=== PATIENT | male | born 1945 | race African-American/Black ===

== ENCOUNTER → 2019-08-22 | Outpatient (CLI) | payer MEDICARE ==
[~2019-08-22] MED LIST: CARV25TA47 PO; CHOL20004 PO; COLC0.6C3 PO; FAMO40TA70 MT; HYDR25TA PO; LOSA50TA41 PO
== END | disposition home or self-care (01) ==
LOC: US 07:13
DX: N28.1 Cyst of kidney, acquired (principal); R16.1 Splenomegaly, not elsewhere classified; M85.88 Other specified disorders of bone density and structure, other site; D69.3 Immune thrombocytopenic purpura
CPT/HCPCS: 76700; 77080

== ENCOUNTER 2020-09-21 20:49 | Inpatient (IN) | payer MEDICARE, OTHER ==
[~2020-09-21] VITALS: Ht 182.9 cm; Wt 83.9 kg
[2020-09-21] MEDS ORDERED: SODIUM CHLORIDE 0.9% 1,000 ML IV ONE (21:45)
[2020-09-21] MEDS ORDERED: ACETAMINOPHEN 325MG TABLET PO ONE (21:45)
[2020-09-21 22:39] LABS: HEMATOCRIT. 23.2 % (42.0-52.0); HEMOGLOBIN. 7.6 g/dL (14.0-18.0); MEAN CORPUSCULAR HEMOGLOBIN 34.5 pg (28.0-32.0); MEAN CORPUSCULAR VOLUME 105.2 fL (80.0-94.0); RED BLOOD CELL COUNT 2.21 mill/uL (4.7-6.1); RED CELL DISTRIBUTION WIDTH 21.3 % (11.6-14.6)
[2020-09-21 22:47] LABS: CHLORIDE 103 mEq/L (98-107)
[2020-09-21 23:02] LABS: MEAN PLATELET VOLUME 11.4 fl (7.4-10.4); PLATELET 63 x1000/uL (130-400)
[2020-09-21 23:04] LABS: NUCLEATED RED BLOOD CELLS 1 /100 WBC; PLATELET ESTIMATE DECREASED
[2020-09-22] MEDS ORDERED: PIPERACILLIN/TAZOBACTAM 3.375GM/50ML PREMIX IV ONE (00:15)
[2020-09-22] MEDS ORDERED: PIPERACILLIN/TAZ 3.375G PREMIX 50 ML IV NR (00:30)
[2020-09-22] MEDS ORDERED: IOHEXOL-300 100 ML BOTTLE ONE (00:51)
[2020-09-22] MEDS ORDERED: SODIUM CHLORIDE 0.9% 1,000 ML IV ONE (01:00)
[2020-09-22] MEDS ORDERED: NOREPINEPHRINE 8 MG in DEXTROSE 5% WATER 250 ML IV PRN (02:15)
[2020-09-22] MEDS ORDERED: VANCOMYCIN 1 G PREMIX 200 ML IV NR (02:30)
[2020-09-22 02:35] LABS: CLARITY URINE CLEAR (CLEAR); COLOR URINE YELLOW (YELLOW); KETONES URINE 1+ (NEGATIVE); LEUKOCYTE ESTERASE URINE NEGATIVE (NEGATIVE); NITRITE URINE NEGATIVE (NEGATIVE); OCCULT BLOOD URINE NEGATIVE (NEGATIVE); PH URINE 5.5 (4.5-8.0); PROTEIN URINE 1+ (NEGATIVE); SPECIFIC GRAVITY URINE 1.043 (1.005-1.030); UROBILINOGEN URINE 0.2 E.U./dL (0.2-1.0)
[2020-09-22] MEDS ORDERED: ACETAMINOPHEN 325MG TABLET PO PRN ×2 (03:30)
[2020-09-22] MEDS ORDERED: ONDANSETRON HCL 4MG/2ML INJ IV PRN (03:30)
[2020-09-22] MEDS ORDERED: VANCOMYCIN 1 G PREMIX 200 ML IV SCH (03:30)
[2020-09-22] MEDS ORDERED: DIPHENHYDRAMINE 50MG/ML VIAL IV PRN (03:30)
[2020-09-22] MEDS ORDERED: ZOLPIDEM TARTRATE 5MG TABLET PO PRN (03:30)
[2020-09-22] MEDS ORDERED: ENOXAPARIN 40MG/0.4ML SYR SUBCUT SCH (03:30)
[2020-09-22] MEDS: SODIUM CHLORIDE 0.9% 1,000 ML IV SCH ×3 (04:33→21:49)
[2020-09-22 04:43] LABS: VITAMIN B12 SERUM > 2000.0 pg/mL (211-911)
[2020-09-22] MEDS ORDERED: MEROPENEM 500 MG in SODIUM CHLORIDE 0.9% 50 ML IV SCH (06:00)
[2020-09-22] MEDS: FAMOTIDINE 20MG/2ML VIAL IV SCH ×2 (08:44→21:56)
[2020-09-22] MEDS: VANCOMYCIN 1500MG in DEXTROSE 5% WATER 250ML IV SCH (11:37)
[2020-09-22 14:00] VITALS: BP 135/74
[2020-09-22 16:00] VITALS: BP 121/63
[2020-09-22 18:00] VITALS: BP 111/58
[2020-09-22] MEDS: MEROPENEM 500MG in NORMAL SALINE 50ML IV SCH (19:07)
[2020-09-22 20:00] VITALS: BP 105/55
[2020-09-22 21:40] VITALS: BP 105/56
[2020-09-22] MEDS: NEOMYCIN/BACITRACIN/POLYMYXIN OINT 14GM TOP SCH (21:57)
[2020-09-23] VITALS (16 sets, daily range): BP systolic 93–128; BP diastolic 46–75
[2020-09-23] MEDS: MEROPENEM 500MG in NORMAL SALINE 50ML IV SCH ×2 (01:00→11:37)
[2020-09-23 06:36] LABS: CHLORIDE 108 mEq/L (98-107)
[2020-09-23 06:40] LABS: MEAN CORPUSCULAR HEMOGLOBIN 33.2 pg (28.0-32.0); MEAN CORPUSCULAR VOLUME 106.5 fL (80.0-94.0); MEAN PLATELET VOLUME 10.7 fl (7.4-10.4); RED CELL DISTRIBUTION WIDTH 21.1 % (11.6-14.6)
[2020-09-23 06:42] LABS: PHOSPHORUS 2.8 mg/dL (2.5-4.9)
[2020-09-23 06:46] LABS: HEMATOCRIT. 20.2 % (42.0-52.0); HEMOGLOBIN. 6.3 g/dL (14.0-18.0); PLATELET 29 x1000/uL (130-400)
[2020-09-23] MEDS: SODIUM CHLORIDE 0.9% 1,000 ML IV SCH (07:13)
[2020-09-23 08:23] LABS: PLATELET ESTIMATE DECREASED
[2020-09-23] MEDS: NEOMYCIN/BACITRACIN/POLYMYXIN OINT 14GM TOP SCH ×2 (09:00→21:27)
[2020-09-23] MEDS: VANCOMYCIN 1500MG in DEXTROSE 5% WATER 250ML IV SCH (09:00)
[2020-09-23] MEDS: FAMOTIDINE 20MG/2ML VIAL IV SCH (10:46)
[2020-09-23] MEDS ORDERED: CEFTRIAXONE 1 G PREMIX 50 ML IV SCH (15:15)
[2020-09-23] MEDS ORDERED: CEFTRIAXONE 1,000 MG in DEXTROSE 5% WATER 50 ML IV SCH (17:00)
[2020-09-23] MEDS: METRONIDAZOLE 500MG TABLET PO SCH (21:26)
[2020-09-24] VITALS (10 sets, daily range): BP systolic 112–144; BP diastolic 62–74
[2020-09-24] MEDS: SODIUM CHLORIDE 0.9% 1,000 ML IV SCH (07:34)
[2020-09-24] MEDS: METRONIDAZOLE 500MG TABLET PO SCH (08:43)
[2020-09-24] MEDS: NEOMYCIN/BACITRACIN/POLYMYXIN OINT 14GM TOP SCH (08:43)
[2020-09-24 17:51] LABS: HEMATOCRIT 26.3 % (42.0-52.0); HEMOGLOBIN 8.6 g/dL (14.0-18.0); MEAN CORPUSCULAR HEMOGLOBIN 33.7 pg (28.0-32.0); RED BLOOD CELL COUNT 2.55 mill/uL (4.7-6.1); RED CELL DISTRIBUTION WIDTH 23.1 % (11.6-14.6)
[2020-09-27 11:59] LABS: PLATELET 26 x1000/uL (130-400)
== END 2020-09-24 18:37 | disposition home or self-care (01) | DRG 872 ==
LOC: ER 20:49 → 5EST 09-22 01:18 → EDBEDREQ 09-22 01:23 → EDBEDREQTM 09-22 01:23 → EDBEDREQSVC 09-22 02:03 → ENRESERV 09-22 13:30
PROVIDERS: ADMIT Internal Medicine; ATTEND Internal Medicine
PROC: 30233N1 Transfusion of Nonautologous Red Blood Cells into Peripheral Vein, Percutaneous Approach (ICD-10-PCS; principal; 2020-09-23)
DX: A41.9 Sepsis, unspecified organism (principal); C94.6 Myelodysplastic disease, not elsewhere classified; L03.312 Cellulitis of back [any part except buttock and flank]; E44.1 Mild protein-calorie malnutrition; I10 Essential (primary) hypertension; K52.9 Noninfective gastroenteritis and colitis, unspecified; D69.6 Thrombocytopenia, unspecified; M10.9 Gout, unspecified; K21.9 Gastro-esophageal reflux disease without esophagitis; I48.91 Unspecified atrial fibrillation; R16.1 Splenomegaly, not elsewhere classified; Z68.25 Body mass index [BMI] 25.0-25.9, adult; Z88.2 Allergy status to sulfonamides; Z79.899 Other long term (current) drug therapy; D64.9 Anemia, unspecified
CPT/HCPCS: 36415; 71045; 74177; 80048; 80076; 81003; 82040; 82607; 82746; 83605; 83615; 83735; 84100; 84134; 84484; 85025; 85027; 86850; 86900; 86920; 93005; 93970; 99291; J0696; J2185; J2543; J3370; J3490; J7030; J7060; P9021; Q9967